=== PATIENT | female | born 1985 | race Caucasian/White ===

== ENCOUNTER 2018-01-21 12:07 | Emergency (ER) | payer MEDICAID ==
[~2018-01-21] VITALS: Ht 157.5 cm; Wt 40.9 kg
[~2018-01-21 12:07] MED LIST: HYDR-569 PO; HYDR1TAB PO; NAPR-1154 PO
[2018-01-21 12:09] VITALS: BP 121/83
[2018-01-21] MEDS ORDERED: ketorolac tromethamine 15mg/ml inj. IM ONE (13:35)
[2018-01-21] MEDS ORDERED: TRAM50TA2 PO (13:42)
[2018-01-21] MEDS ORDERED: NAPR-56 PO (13:42)
== END 2018-01-21 13:58 | disposition home or self-care (01) ==
LOC: ER 12:08
DX: M25.532 Pain in left wrist (principal); M19.90 Unspecified osteoarthritis, unspecified site; Z98.890 Other specified postprocedural states; Z98.51 Tubal ligation status; X50.1XXA Overexertion from prolonged static or awkward postures, initial encounter; Y93.H2 Activity, gardening and landscaping; Y92.89 Other specified places as the place of occurrence of the external cause; Y99.9 Unspecified external cause status
CPT/HCPCS: 29125; 73110; 96372; 99284; J1885

== ENCOUNTER 2018-07-23 22:54 | Emergency (ER) | payer MEDICAID, OTHER ==
[~2018-07-23] VITALS: Ht 154.9 cm; Wt 41.8 kg
[2018-07-23 22:56] VITALS: BP 153/60
[2018-07-23] MEDS ORDERED: dexamethasone sod phosphate 10mg/ml inj PO STA (23:17)
[2018-07-23] MEDS ORDERED: HYDROcodone/acetaminophen 5mg/325mg tablet PO ONE (23:20)
== END 2018-07-23 23:28 | disposition home or self-care (01) ==
LOC: ER 22:55
DX: J03.90 Acute tonsillitis, unspecified (principal); R63.0 Anorexia; R00.0 Tachycardia, unspecified; M19.90 Unspecified osteoarthritis, unspecified site; F17.200 Nicotine dependence, unspecified, uncomplicated; Z79.899 Other long term (current) drug therapy; Z98.890 Other specified postprocedural states; Z98.51 Tubal ligation status
CPT/HCPCS: 99283; J1100

== ENCOUNTER 2018-07-25 08:05 | Emergency (ER) | payer OTHER ==
[~2018-07-25] VITALS: Ht 154.9 cm; Wt 40.8 kg
[2018-07-25] MEDS ORDERED: ketorolac trometh. 30mg/ml inj. IV ONE (08:25)
[2018-07-25] MEDS ORDERED: dexamethasone 4mg/ml inj IV ONE (08:25)
[2018-07-25] MEDS ORDERED: LIDOcaine 1% w/epiNEPHrine 1:200,000 30ml vial IM ONE (08:25)
[2018-07-25] MEDS ORDERED: normal saline 1000ml 1,000 ML IV ONE (08:25)
[2018-07-25] MEDS ORDERED: clindamycin phosphate inj 600 MG in normal saline 50ml IV soln 50 ML IV ONE (08:40)
[2018-07-25] MEDS ORDERED: clindamycin 600mg/D5W 50ml 50 ML IV ONE (08:50)
[2018-07-25] MEDS ORDERED: CLIN150C2 PO (08:58)
[2018-07-25] MEDS ORDERED: morphine 4 MG/ML inj SYRINge IV ONE (09:00)
[2018-07-25] MEDS ORDERED: ondansetron/PF 4mg/2ml inj IV ONE (09:00)
[2018-07-25 09:42] VITALS: BP 114/68
== END 2018-07-25 09:52 | disposition home or self-care (01) ==
LOC: ER 08:06
DX: J36 Peritonsillar abscess (principal); M19.90 Unspecified osteoarthritis, unspecified site; Z79.899 Other long term (current) drug therapy; Z98.890 Other specified postprocedural states; Z98.51 Tubal ligation status
CPT/HCPCS: 42700; 96365; 96375; 99283; J1100; J1885; J2270; J2405; J3490; J7030; J7040

== ENCOUNTER 2019-03-18 15:32 | Emergency (ER) | payer OTHER ==
[~2019-03-18] VITALS: Ht 157.5 cm; Wt 41.8 kg
[2019-03-18 17:51] VITALS: BP 118/71
== END 2019-03-18 17:55 | disposition home or self-care (01) ==
LOC: ER 15:32
DX: R07.89 Other chest pain (principal); K04.7 Periapical abscess without sinus; H53.8 Other visual disturbances; M19.90 Unspecified osteoarthritis, unspecified site; F10.99 Alcohol use, unspecified with unspecified alcohol-induced disorder; Z86.2 Personal history of diseases of the blood and blood-forming organs and certain disorders involving the immune mechanism; Z98.51 Tubal ligation status; Z98.890 Other specified postprocedural states; Z79.899 Other long term (current) drug therapy; Y90.9 Presence of alcohol in blood, level not specified
CPT/HCPCS: 93005; 99283

== ENCOUNTER 2019-12-01 18:32 | Emergency (ER) | payer OTHER ==
[~2019-12-01] VITALS: Ht 154.9 cm; Wt 43.5 kg
[2019-12-01 18:34] VITALS: BP 128/89
== END 2019-12-01 19:15 | disposition home or self-care (01) ==
LOC: ER 18:33
DX: S93.401A Sprain of unspecified ligament of right ankle, initial encounter (principal); M25.571 Pain in right ankle and joints of right foot; M25.471 Effusion, right ankle; Z86.2 Personal history of diseases of the blood and blood-forming organs and certain disorders involving the immune mechanism; Z98.51 Tubal ligation status; Z98.890 Other specified postprocedural states; Z72.89 Other problems related to lifestyle; Z79.899 Other long term (current) drug therapy; W17.89XA Other fall from one level to another, initial encounter; Y93.39 Activity, other involving climbing, rappelling and jumping off; Y92.89 Other specified places as the place of occurrence of the external cause; Y99.8 Other external cause status
CPT/HCPCS: 73610; 73630; 99284

== ENCOUNTER 2020-02-21 11:35 | Emergency (ER) | payer OTHER ==
[~2020-02-21] VITALS: Ht 157.5 cm; Wt 40.9 kg
[2020-02-21 11:55] VITALS: BP 153/95
[2020-02-21] MEDS ORDERED: traMADol 50MG tablet PO ONE (13:35)
[2020-02-21] MEDS ORDERED: TRAM50TA2 PO (13:43)
[2020-02-21] MEDS ORDERED: AMOX-422 PO (13:43)
== END 2020-02-21 14:02 | disposition home or self-care (01) ==
LOC: ER 11:35
DX: K08.89 Other specified disorders of teeth and supporting structures (principal); M79.645 Pain in left finger(s); M79.89 Other specified soft tissue disorders; Z86.2 Personal history of diseases of the blood and blood-forming organs and certain disorders involving the immune mechanism; Z98.51 Tubal ligation status; Z98.890 Other specified postprocedural states; Z72.89 Other problems related to lifestyle; Z79.899 Other long term (current) drug therapy
CPT/HCPCS: 73140; 99283

== ENCOUNTER 2020-05-09 14:48 | Emergency (ER) | payer OTHER ==
[~2020-05-09] VITALS: Ht 157.5 cm; Wt 40.2 kg
--- NOTE | 2020-05-09 15:01 | NUR ---
[id number]
[2020-05-09 15:59] LABS: BASOPHILS # (AUTO) 0.1 X10'3 (0-0.2); BASOPHILS % (AUTO) 0.6 % (0-1); EOSINOPHILS # (AUTO) 0.1 X10'3 (0-0.9); EOSINOPHILS % (AUTO) 0.4 % (0-6); HEMOGLOBIN 15.6 g/dl (12.0-16.0); LYMPHOCYTES # (AUTO) 2.1 X10'3 (1.1-4.8); LYMPHOCYTES % (AUTO) 13.1 % (21-51); MEAN CORPUSCULAR HEMOGLOBIN 33.6 PG (27.0-31.0); MEAN CORPUSCULAR HGB CONC 33.9 g/dL (33.0-36.5); MEAN PLATELET VOLUME 7.8 FL (7.4-10.4); MONOCYTES % (AUTO) 6.3 % (2-12); NEUTROPHILS # (AUTO) 12.8 X10'3 (1.8-7.7); NEUTROPHILS % (AUTO) 79.6 % (42-75); PLATELET COUNT 298 X10'3 (140-440); RED BLOOD COUNT 4.65 X10'6 (4.20-5.60); RED CELL DISTRIBUTION WIDTH 12.7 % (11.5-14.5); WHITE BLOOD COUNT 16.1 X10'3 (4.5-11.0)
[2020-05-09 16:10] LABS: ALANINE AMINOTRANSFERASE 27 U/L (12-78); ALBUMIN 4.1 G/DL (3.4-5.0); ALBUMIN/GLOBULIN RATIO 1.1 (1.1-1.5); ALKALINE PHOSPHATASE 80 IU/L (46-116); ANION GAP 8 (8-16); ASPARTATE AMINO TRANSFERASE 17 U/L (10-37); BILIRUBIN,TOTAL 0.3 MG/DL (0.1-1.0); BLOOD UREA NITROGEN 7 MG/DL (7-18); BUN/CREATININE RATIO 10.8 (6.6-38.0); CALCIUM 9.6 MG/DL (8.5-10.1); CHLORIDE 102 MMOL/L (99-107); CREATININE 0.65 MG/DL (0.40-0.90); GLUCOSE 106 MG/DL (70-104); POTASSIUM 3.8 MMOL/L (3.5-5.1); SODIUM 136 MMOL/L (135-145); TOTAL CARBON DIOXIDE 26.3 MMOL/L (24-32); TOTAL PROTEIN 7.7 G/DL (6.4-8.2); eGFR > 90 ML/MIN
[2020-05-09 19:34] VITALS: BP 139/101
== END 2020-05-09 19:35 | disposition home or self-care (01) ==
LOC: ER 14:49
DX: R07.89 Other chest pain (principal); R00.2 Palpitations; F17.200 Nicotine dependence, unspecified, uncomplicated; Z86.2 Personal history of diseases of the blood and blood-forming organs and certain disorders involving the immune mechanism; Z98.51 Tubal ligation status; Z98.890 Other specified postprocedural states; Z79.899 Other long term (current) drug therapy; Z72.89 Other problems related to lifestyle
CPT/HCPCS: 36415; 71045; 80053; 83880; 84484; 85025; 93005; 99285

== ENCOUNTER 2021-08-15 12:40 | Emergency (ER) | payer BC ==
[~2021-08-15] VITALS: Ht 157.5 cm; Wt 43.2 kg
[2021-08-15 14:57] LABS: BASOPHILS % (AUTO) 0.5 % (0-1); EOSINOPHILS # (AUTO) 0.3 X10'3 (0-0.9); EOSINOPHILS % (AUTO) 4.2 % (0-6); HEMATOCRIT 44.8 % (35.0-45.0); HEMOGLOBIN 14.9 g/dl (12.0-16.0); LYMPHOCYTES # (AUTO) 1.5 X10'3 (1.1-4.8); LYMPHOCYTES % (AUTO) 21.4 % (21-51); MEAN CORPUSCULAR HEMOGLOBIN 31.8 PG (27.0-31.0); MEAN CORPUSCULAR HGB CONC 33.3 g/dL (33.0-36.5); MEAN CORPUSCULAR VOLUME 95.4 FL (78-98); MEAN PLATELET VOLUME 7.3 FL (7.4-10.4); MONOCYTES # (AUTO) 0.8 X10'3 (0-0.9); MONOCYTES % (AUTO) 10.8 % (2-12); NEUTROPHILS # (AUTO) 4.5 X10'3 (1.8-7.7); NEUTROPHILS % (AUTO) 63.1 % (42-75); PLATELET COUNT 323 X10'3 (140-440); RED CELL DISTRIBUTION WIDTH 13.6 % (11.5-14.5); WHITE BLOOD COUNT 7.1 X10'3 (4.5-11.0)
[2021-08-15 15:14] LABS: ALANINE AMINOTRANSFERASE 24 U/L (12-78); ALBUMIN 3.7 G/DL (3.4-5.0); ALBUMIN/GLOBULIN RATIO 0.9 (1.1-1.5); ALKALINE PHOSPHATASE 110 IU/L (46-116); ANION GAP 8 (8-16); ASPARTATE AMINO TRANSFERASE 21 U/L (10-37); BILIRUBIN,TOTAL 0.4 MG/DL (0.1-1.0); BLOOD UREA NITROGEN 12 MG/DL (7-18); BUN/CREATININE RATIO 20.7 (6.6-38.0); CALCIUM 9.5 MG/DL (8.5-10.1); CHLORIDE 105 MMOL/L (99-107); CREATININE 0.58 MG/DL (0.40-0.90); GLUCOSE 88 MG/DL (70-104); POTASSIUM 4.2 MMOL/L (3.5-5.1); SODIUM 141 MMOL/L (135-145); TOTAL CARBON DIOXIDE 27.8 MMOL/L (24-32); TOTAL PROTEIN 7.8 G/DL (6.4-8.2); eGFR > 90 ML/MIN
[2021-08-15 15:26] LABS: C-REACTIVE PROTEIN 1.82 MG/DL (0.0-0.5)
[2021-08-15 15:39] VITALS: BP 105/63
[2021-08-15] MEDS ORDERED: oxyCODONE/APAP 5-325mg tablet PO ONE (16:00)
[2021-08-15] MEDS ORDERED: cephalexin 250mg capsule PO ONE (16:00)
[2021-08-15] MEDS ORDERED: CEPH500C2 PO (16:03)
[2021-08-15] MEDS ORDERED: TRAM50TA2 PO (16:03)
== END 2021-08-15 16:56 | disposition home or self-care (01) ==
LOC: ER 12:41
DX: L03.115 Cellulitis of right lower limb (principal); M25.571 Pain in right ankle and joints of right foot; Z86.2 Personal history of diseases of the blood and blood-forming organs and certain disorders involving the immune mechanism; Z85.3 Personal history of malignant neoplasm of breast; Z98.51 Tubal ligation status; Z98.890 Other specified postprocedural states; Z72.89 Other problems related to lifestyle; Z79.2 Long term (current) use of antibiotics; Z79.899 Other long term (current) drug therapy
CPT/HCPCS: 36415; 73610; 73700; 80053; 83605; 84145; 85025; 85651; 86140; 87040; 99285

== ENCOUNTER 2022-01-16 18:27 | Emergency (ER) | payer BC, MEDICAID ==
[~2022-01-16] VITALS: Ht 157.5 cm; Wt 43.2 kg
[2022-01-16 19:54] LABS: BASOPHILS % (AUTO) 0.6 % (0-1); EOSINOPHILS # (AUTO) 0.2 X10'3 (0-0.9); EOSINOPHILS % (AUTO) 2.5 % (0-6); HEMATOCRIT 45.1 % (35.0-45.0); HEMOGLOBIN 15.5 g/dl (12.0-16.0); LYMPHOCYTES # (AUTO) 1.9 X10'3 (1.1-4.8); LYMPHOCYTES % (AUTO) 25.2 % (21-51); MEAN CORPUSCULAR HEMOGLOBIN 33.5 PG (27.0-31.0); MEAN CORPUSCULAR HGB CONC 34.4 g/dL (33.0-36.5); MEAN CORPUSCULAR VOLUME 97.4 FL (78-98); MEAN PLATELET VOLUME 7.7 FL (7.4-10.4); MONOCYTES # (AUTO) 0.7 X10'3 (0-0.9); MONOCYTES % (AUTO) 9.2 % (2-12); NEUTROPHILS # (AUTO) 4.8 X10'3 (1.8-7.7); NEUTROPHILS % (AUTO) 62.5 % (42-75); PLATELET COUNT 274 X10'3 (140-440); RED BLOOD COUNT 4.64 X10'6 (4.20-5.60); RED CELL DISTRIBUTION WIDTH 12.8 % (11.5-14.5); WHITE BLOOD COUNT 7.6 X10'3 (4.5-11.0)
[2022-01-16 20:03] LABS: ALANINE AMINOTRANSFERASE 52 U/L (12-78); ALBUMIN 4.3 G/DL (3.4-5.0); ALBUMIN/GLOBULIN RATIO 1.2 (1.1-1.5); ALKALINE PHOSPHATASE 106 IU/L (46-116); ANION GAP 12 (8-16); ASPARTATE AMINO TRANSFERASE 57 U/L (10-37); BILIRUBIN,TOTAL 0.4 MG/DL (0.1-1.0); BLOOD UREA NITROGEN 9 MG/DL (7-18); BUN/CREATININE RATIO 11.7 (6.6-38.0); CALCIUM 9.3 MG/DL (8.5-10.1); CHLORIDE 100 MMOL/L (99-107); CREATININE 0.77 MG/DL (0.40-0.90); GLUCOSE 98 MG/DL (70-104); POTASSIUM 3.7 MMOL/L (3.5-5.1); SODIUM 141 MMOL/L (135-145); TOTAL CARBON DIOXIDE 29.1 MMOL/L (24-32); TOTAL PROTEIN 7.8 G/DL (6.4-8.2); eGFR 85 ML/MIN
[2022-01-16] MEDS ORDERED: normal saline 1000ML IV soln IVB ONE (20:45)
[2022-01-16] MEDS ORDERED: ondansetron/PF 4mg/2ml inj IV ONE (20:45)
[2022-01-16] MEDS ORDERED: pantoprazole 40 MG vial IV ONE (20:45)
[2022-01-16] MEDS ORDERED: pantoprazole 40MG/NS 100ML BAG 100 ML IV STA (22:11)
[2022-01-16 22:30] VITALS: BP 128/85
== END 2022-01-16 23:38 | disposition home or self-care (01) ==
LOC: ER 18:28
DX: R07.9 Chest pain, unspecified (principal); R68.84 Jaw pain; R11.0 Nausea; E07.9 Disorder of thyroid, unspecified; Z85.3 Personal history of malignant neoplasm of breast; Z86.2 Personal history of diseases of the blood and blood-forming organs and certain disorders involving the immune mechanism; Z79.899 Other long term (current) drug therapy
CPT/HCPCS: 36415; 71045; 80053; 83880; 84484; 85025; 93005; 96361; 96365; 96375; 99285; C9113; J2405; J7030

== ENCOUNTER 2022-07-30 00:26 | Emergency (ER) | payer MEDICAID ==
[~2022-07-30] VITALS: Ht 157.5 cm; Wt 43.2 kg
[2022-07-30 00:30] VITALS: BP 141/100
--- NOTE | 2022-07-30 02:00 | NUR ---
RECEIVED REPORT ASSUMING CARE OF PT. PT SITTING ON Hypertension Diagnostics READING BOOK AT PRESENT TIME.
[2022-07-30] MEDS ORDERED: ondansetron 4mg rapidly disintigrating tab PO ONE (02:30)
[2022-07-30] MEDS ORDERED: clindamycin 150mg capsule PO ONE (02:30)
[2022-07-30] MEDS ORDERED: CLIN150C8 PO (02:31)
[2022-07-30] MEDS ORDERED: HYDROcodone/acetaminophen 5mg/325mg tablet PO STA (02:47)
== END 2022-07-30 03:14 | disposition home or self-care (01) ==
LOC: ER 00:27
DX: L72.3 Sebaceous cyst (principal); Z98.51 Tubal ligation status; Z98.890 Other specified postprocedural states; Z72.89 Other problems related to lifestyle; Z79.899 Other long term (current) drug therapy
CPT/HCPCS: 99284